=== PATIENT | female | born 1965 | race Two or more races ===

== ENCOUNTER 2020-11-02 08:50 | Day surgery (SDC) | payer OTHER ==
[2020-10-26 13:53] VITALS: BMI 28.3
[2020-11-02] MEDS ORDERED: MIDAZOLAM HCL 2 MG/2 ML SINGLE DOSE VIAL ONE ×2 (10:33)
[2020-11-02] MEDS ORDERED: PROPOFOL 20 ML ONE ×2 (10:37→10:50)
[2020-11-02] MEDS ORDERED: LIDOCAINE HCL 2% (50ML VIAL) INF ONE (10:48)
[2020-11-02 12:09] VITALS: PULSE 80; TEMP 97.6
[2020-11-02 12:11] VITALS: BP 118/68
== END 2020-11-02 11:55 | disposition home or self-care (01) ==
LOC: FASU 08:50
PROVIDERS: ATTEND Orthopaedic Surgery Hand Surgery
PROC: 01N50ZZ Release Median Nerve, Open Approach (ICD-10-PCS; principal; 2020-11-02 10:52)
DX: G56.02 Carpal tunnel syndrome, left upper limb (principal)